=== PATIENT | female | born 1935 | race Caucasian/White ===

== ENCOUNTER → 2017-05-11 | Outpatient (CLI) | payer BC ==
--- NOTE | 2017-05-11 13:50 | KCIC ---
LUMBAR SPINE MIN 4V History: Low back pain for 2 to 3 weeks, osteoarthritis Comparison: None. Findings: 5 views of the lumbar spine are submitted. There is mild dextroscoliosis centered upon the superior lumbar spine. There is mild anterior compression deformity of L1 without significant osseous retropulsion. There is diffuse bone demineralization. There is grade 1 anterior spondylolisthesis L4-5 and to lesser degree at L5-S1. There is minimal posterior subluxation L2 relative L3 and negligible posterior subluxation L1 relative to L2. There is multilevel lumbar facet degenerative change. There is diffuse atherosclerotic calcification of the abdominal aorta. There is diffuse retained stool in the colon. Impression: 1. There is anterior L1 compression fracture, could be more recent. There is diffuse bone demineralization. 2. There is grade 1 anterior spondylolisthesis at L4-5 and to lesser degree L5-S1, also minimal posterior subluxation of L2 relative to L3 and L1 relative to L2. There is multilevel facet degenerative change. There is lumbar dextroscoliosis. Electronically signed by: Berhane Kemp MD (05/11/2017 1:47 PM) [id number]
== END | disposition home or self-care (01) ==
LOC: KCIC 11:38
PROVIDERS: ATTEND Family Medicine
DX: M48.56XA Collapsed vertebra, not elsewhere classified, lumbar region, initial encounter for fracture (principal); M81.0 Age-related osteoporosis without current pathological fracture; M47.896 Other spondylosis, lumbar region; M43.16 Spondylolisthesis, lumbar region
CPT/HCPCS: 72110

== ENCOUNTER → 2018-01-03 | Outpatient (CLI) | payer BC | END | disposition home or self-care (01) | LOC: KCIC CT 11:10 | DX: Z01.818 Encounter for other preprocedural examination (principal); M19.011 Primary osteoarthritis, right shoulder; M75.101 Unspecified rotator cuff tear or rupture of right shoulder, not specified as traumatic | CPT/HCPCS: 73200 ==

== ENCOUNTER → 2018-08-25 | Outpatient (CLI) | payer BC ==
--- NOTE | 2018-08-25 14:04 | KCIC ---
EXAM: Right wrist, 3 views. HISTORY: Pain. COMPARISON: None. FINDINGS: 3 views of the right wrist are obtained. There is near complete loss of the radial carpal joint space with associated radial and scaphoid subchondral sclerosis and bony remodeling. There is widening of the scapholunate joint space and proximal migration of the capitate. There is moderate first carpometacarpal joint space narrowing with subchondral sclerosis and marginal spurring. There is wrist soft tissue swelling. There is bone demineralization. IMPRESSION: 1. 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 2. Severe radiocarpal degenerative change with joint space narrowing, subchondral sclerosis and bony remodeling. 3. Moderate first carpometacarpal osteoarthritis. 4. Right wrist soft tissue swelling and suspected bone demineralization Electronically signed by: Elaine Lopez MD (08/25/2018 2:00 PM) [facility] [id number]
== END | disposition home or self-care (01) ==
LOC: KCIC 11:01
PROVIDERS: ATTEND Internal Medicine Rheumatology
DX: M18.11 Unilateral primary osteoarthritis of first carpometacarpal joint, right hand (principal)
CPT/HCPCS: 73110